=== PATIENT | male | born 1935 | race Caucasian/White ===

== ENCOUNTER → 2020-04-13 | Outpatient (BNVA) | payer MEDICARE, SELFPAY | PROVIDERS: PCP Internal Medicine; Visit Provider Urology | DX: N40.1 Benign prostatic hyperplasia with lower urinary tract symptoms (principal); R53.1 Weakness; G20 Parkinson's disease; Z79.899 Other long term (current) drug therapy | CPT/HCPCS: 51798; 81002; 99212 ==

== ENCOUNTER → 2021-04-19 13:37 | Outpatient (BNVA) | payer OTHER, SELFPAY | PROVIDERS: PCP Internal Medicine; Visit Provider Urology | DX: N40.1 Benign prostatic hyperplasia with lower urinary tract symptoms (principal); R35.1 Nocturia | CPT/HCPCS: 51798; 99212 ==

== ENCOUNTER → 2021-07-08 13:27 | Outpatient (BNVA) | payer MEDICARE, SELFPAY | PROVIDERS: PCP Internal Medicine; Visit Provider Psychiatry & Neurology Neurology | DX: G20 Parkinson's disease (principal); G24.4 Idiopathic orofacial dystonia; Z79.899 Other long term (current) drug therapy | CPT/HCPCS: 99212 ==

== ENCOUNTER → 2021-10-25 14:43 | Outpatient (BNVA) | payer MEDICARE, SELFPAY | PROVIDERS: PCP Internal Medicine; Visit Provider Urology | DX: N40.1 Benign prostatic hyperplasia with lower urinary tract symptoms (principal); R35.1 Nocturia | CPT/HCPCS: 51798; 99212 ==

== ENCOUNTER 2023-05-15 13:52 | Outpatient (AMB) | payer MEDICARE, SELFPAY ==
[2023-05-15 14:00] VITALS: BP 120/82; PULSE 88; RESP 16
--- NOTE | 2023-05-15 14:00 | A.OFFVIS_ITS ---
Intake Vital Signs 05/15/23 14:00 Height 5 ft 9 in BP 120/82 Blood Pressure Location Rt brachial Position Sitting Respiration 16 Pulse 88 Pulse Source Palpation Intake Visit Reasons: follow up - LVM Intake Note: Pt presents to the office for a follow up for Parkinsons. He states he feels like I'm slowing down . Key Ringer Required: No Allergies sulfa Allergy (Unknown, Uncoded 05/15/23 14:13) Unknown HPI HPI Comments History of Present Illness Details 87 y/o male patient comes with his [employer] aid for follow up of Parkinson's disease. He lives in [facility] now.His is in the Assisted living as well Pt states that he feels weaker and has declined. He walks about 150 ft a day with walker He uses an motorized wheel chair most of the time. He is on sinemet 1.5 4 times a day and amantadine 100mg bidSwallowing has improved from puree diet to mechanical soft diet, no choking reported. Pt reports his memory fair, denies hallucination. Pt uses mouth guard at night because of mouth dyskinesia. Denies light headedness. Pt drinks 4 glassless of water daily and juice Manages constipation with Miralax and senna. Pt reports he can only walk short distance with walker. He only can participates the seated exercise program at the [facility]. [facility] Medical History Kidney stones Eye dryness HTN (hypertension) Parkinsons disease Poor urinary stream Benign prostatic hyperplasia with lower urinary tract symptoms Surgical History H/O hernia repair History of appendectomy History of surgery Family History Family/Other Cancer Diabetes mellitus Stroke Father No problems noted. Mother No problems noted. Household Members: Spouse Alcohol intake: current Alcohol intake frequency: holidays/special occasions only Patient Tobacco Use Status: Never used Tobacco Review of Systems ENT Reports Normal hearing present Neuro Reports Normal hearing present Physical Exam Vital Signs: Last Vital Signs Pulse 88 05/15/23 14:00 Resp 16 05/15/23 14:00 BP 120/82 05/15/23 14:00 Const General: cooperative and no acute distress Nutritional Appearance: average body habitus Orientation/consciousness: patient oriented x3 Limitations: wheelchair HEENT Head: Yes normocephalic Ears: hearing grossly normal bilaterally Mouth: other (dyskinesia of mouth) Eyes Pupils: Equal, round and reactive pupils present Neuro General: patient oriented x3, Unable to assess gait and other (Decreased facial expression) Cranial nerves: Yes Equal, round and reactive pupils present, Yes Bilaterally intact EOM present, Yes Normal hearing present, Yes Ability to bilaterally rotate head present and Yes Ability to bilaterally elevate shoulders present Cognition (Neuro): normal cognition Gait exam (Neuro): Unable to assess gait Motor exam (neuro): Tremors during motor activity present (minimal tremor of right hand) Deep tendon reflexes (DTR's): Rt Biceps (C5, C6): 2+, Left biceps reflex intensity grade: 2+, Right brachioradialis reflex intensity grade: 2+ and Left brachioradialis reflex intensity grade: 2+ Psych Speech and movement: Other speech and movement exam findings present (Psych) (hypophonia ) Affect: normal affect Attitude: cooperative Thought process: Normal thought process present Thought content: Normal thought content present Assessment & Plan Assessment & Plan (1) Parkinsons disease: Code(s): G20 - Parkinson's disease (2) 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 Pt would benefit with the motorized wheel chair in risk of injury due to falls and weakness secondary to complications of Parkinson's Disease. Ordered motorized wheelchair. Coding Level of Care Code Est Pt Level 4 (75568) Diagnoses Parkinsons disease G20 Dyskinesia of mouth G24.4
== END 2023-05-15 14:34 | disposition home or self-care (01) ==
PROVIDERS: PCP Internal Medicine; Visit Provider Psychiatry & Neurology Neurology
DX: G20.B1 Parkinson's disease with dyskinesia, without mention of fluctuations (principal)
CPT/HCPCS: 99214

== ENCOUNTER → 2023-05-15 13:52 | Outpatient (BNVA) | payer MEDICARE, SELFPAY | PROVIDERS: PCP Internal Medicine; Visit Provider Psychiatry & Neurology Neurology | DX: G20.A1 Parkinson's disease without dyskinesia, without mention of fluctuations (principal); G24.4 Idiopathic orofacial dystonia | CPT/HCPCS: 99212 ==

== ENCOUNTER 2023-05-29 10:56 | Outpatient (AMB) | payer MEDICARE, SELFPAY ==
--- OUTSIDE RECORDS SUMMARY | 2023-05-29 10:57 | XMS_ITS | Continuity of Care Document ---
Author Name Unknown Organization [facility] ter Address [address] [place] [address]- Care Team Providers [employer] Name Role Phone Melvin Govea MD Primary Care Physician Encounter [facility] Date(s): 04/30/23 - 04/30/[address] [address] Discharge Disposition: A-D/C Home Attending Physician: Tevin Bernstein MD Admitting Physician: Tevin Bernstein MD Referring Physician: Tevin Bernstein MD Allergies, Adverse Reactions, Alerts Substance Reaction Severity Status sulfADIAZINE rash Active Immunizations Given and Recorded Vaccine Date Status Refusal Reason Typhoid Vaccine, Inactivated 06/22/10 Given Typhoid Vaccine, Inactivated 03/06/05 Given tetanus/diphtheria/pertussis, acel(Tdap) 06/22/10 Given Hepatitis A Adult Vaccine 1 09/06/05 Given Hepatitis A Adult Vaccine 2 03/06/05 Given Hepatitis A Vaccine (oldterm) 3 09/06/05 Given Hepatitis B Vaccine (old term) 4 05/04/05 Given Hepatitis B Vaccine (old term) 5 04/07/05 Given Poliovirus Vaccine, Inactivated 04/07/05 Given Meningococcal Conjugate Vaccine 6 04/07/05 Given tetanus-diphtheria toxoids (Td) 12/28/04 Given Yellow Fever Vaccine 12/28/04 Given 1Admin Note: hep a #2 2Admin Note: hep a #1 3Admin Note: hep b #3 4Admin Note: hep b #2 5Admin Note: hep b #1 6Admin Note: menactra Medications amantadine 100 mg oral tablet 1 tablet = 100 mg, By Mouth, 2 times a day, # 20 tablet, 0 Refills, Maintenance, 01/24/19 21:43:06 EDT, Tablet Start Date: 01/24/19 Stop Date: 02/03/19 Status: Ordered ascorbic acid 250 mg oral tablet 1 tablet = 250 mg, By Mouth, Daily, # 30 tablet, 0 Refills, Maintenance, 03/22/23 17:35:00 EDT, Tablet, Partial fill upon patient request if the prescription is for a schedule II opioid drug. Start Date: 03/22/23 Status: Ordered bisacodyl 10 mg rectal suppository 1 supp = 10 mg, Rectally, Daily, PRN for constipation, # 10 supp, 0 Refills, Maintenance, 03/22/23 17:35:00 EDT, Suppository, Partial fill upon patient request if the prescription is for a schedule II opioid drug. Start Date: 03/22/23 Status: Ordered carbidopa-levodopa 25 mg-100 mg oral tablet 1 tablet, 5 times a day, 0 Refills, Maintenance, 01/24/19 21:42:04 EDT, Tablet Start Date: 01/24/19 Status: Ordered Cholecalciferol 1000, By Mouth, Daily, 0 Refills, Maintenance, 03/22/23 17:34:00 EDT, Partial fill upon patient request if the prescription is for a schedule II opioid drug. Start Date: 03/22/23 Status: Ordered finasteride 5 mg oral tablet 1 tablet = 5 mg, Daily, 0 Refills, Maintenance, 01/24/19 21:43:18 EDT, Tablet Start Date: 01/24/19 Status: Ordered lisinopril 10 mg oral tablet 10 mg, 1, tablet, By Mouth, Daily, # 30 tablet, Refills 1, Tot. Refills 1, Maintenance, 01/27/19 10:17:06 EDT, Print Requisition Start Date: 01/27/19 Status: Ordered MiraLax oral powder for reconstitution = 17 Gm, By Mouth, Daily, PRN Constipation, dissolve in water before taking, # 255 Gm, 0 Refills, Maintenance, 03/22/23 17:35:00 EDT, REC Powder, Partial fill upon patient request if the prescriptionis for a schedule II opioid drug. Start Date: 03/22/23 Status: Ordered Restasis 0.05% ophthalmic emulsion 0 Refills, Maintenance, 03/22/23 17:32:00 EDT, Partial fill upon patient request if the prescription is for a schedule II opioid drug. Start Date: 03/22/23 Status: Ordered Systane Ultra preserved ophthalmic solution 1 drops, Eyes, Both, 2 times a day, PRN for dry eyes, # 30 mL, 0 Refills, Maintenance, 03/22/23 17:37:00 EDT, Solution, Partial fill upon patient request if the prescription is for a schedule II opioid drug. Start Date: 03/22/23 Status: Ordered Tylenol 325 mg oral tablet 650 mg, By Mouth, Every 6 hours, PRN, Refills 0, Maintenance, Pain , Mild, 01/27/19 9:53:30 EDT Start Date: 01/27/19 Status: Ordered Vital Signs Most recent to oldest [Reference Range]: 1 2 3 Weight 61.8 kg (04/30/23 7:44 AM) Oxygen Saturation [94-100 %] 98 % (04/30/23 8:45 AM) 100 % (04/30/23 8:15 AM) 100 % (04/30/23 8:00 AM) Pulse Rate [55-90 bpm] 57 bpm (04/30/23 8:15 AM) 58 bpm (04/30/23 8:00 AM) 61 bpm (04/30/23 7:44 AM) Blood Pressure [90-138/55-84 mm Hg] 157/66mm Hg *H* (04/30/23 9:00 AM) 157/66mm Hg *H* (04/30/23 8:45 AM) 138/55mm Hg (04/30/23 8:15 AM) Respiratory Rate [16-30 br/min] 19 br/min (04/30/23 9:00 AM) 15 br/min *L* (04/30/23 8:45 AM) 21 br/min (04/30/23 8:15 AM) Temperature [96.8-100.4 DegF] 96.9 DegF (04/30/23 8:45 AM) 97.3 DegF (04/30/23 7:44 AM) Liters per Minute 0 L/min (04/30/23 8:45 AM) 2 L/min (04/30/23 8:15 AM) 2 L/min (04/30/23 8:00 AM) Mode of Delivery (Oxygen) Room air (04/30/23 9:00 AM) Room air (04/30/23 8:45 AM) Nasal cannula (04/30/23 8:15 AM) Blood pressure sites Arm, left (04/30/23 8:15 AM) Arm, left (04/30/23 8:00 AM) Arm, left (04/30/23 7:44 AM) Temperature Route Temporal (04/30/23 8:45 AM) Temporal (04/30/23 7:44 AM) Dry Weight 61.8 kg (04/30/23 7:44 AM) Dry Weight Obtained Via Standing scale (04/30/23 7:44 AM) History and physical note * Event Display: History and Physical Hospital Authored Date: [id number] Note * Sharri Serrano RN: PERFORM Event Display: Discharge/Transfer Note Hospital Authored Date: [id number] Nursing Discharge Note Entered On: 04/30/2023 9:35 EST Performed On: 04/30/2023 9:35 EST by Sharri Serrano RN Nursing Discharge Note 2 Discharge Time : 04/30/2023 9:44 EST Sharri Serrano RN - 04/30/2023 9:38 EST Discharge Level of Care at Discharge : Home/Custodial/Foster Care Patient Left Unit Via : Wheelchair Patient Accompanied Off Unit with : Responsible adult DC Instructions Provided & Signed by Pt : Yes Patient Understands D/C Instructions : Yes Verbalized Understanding of D/C Plan By : Family Patient Instructions Discharge Signed : Yes Did Pt have Specialty Bed or Wound Vac : No Sharri Serrano RN - 04/30/2023 9:35 EST * Sharri Serrano RN: PERFORM Event Display: Patient Education/Instruction Authored Date: [id number] Inpatient Adult Discharge Instructions [address] [address] Name: AMOS MOROCHO : 1935 Visit: 04/30/2023 06:02:00 Current Date: 04/30/2023 09:36 Account: [id number] Inpatient Adult Discharge Instructions We would like to thank you for allowing us to assist you with your healthcare needs. The following includes patient education materials and information regarding your injury/illness. Our entire staffstrives to provide an excellent experience for our patients and their families. PLEASE ENSURE YOU FOLLOW-UP PER THE INSTRUCTIONS BELOW! ?? YOUR OPINION IS IMPORTANT TO US! Please complete the survey you may receive by mail or email. Your feedback will be used to make improvements to the healthcare experiences of our patients and their families. Surveys are administered by [employer] ?? If further treatment with your primary care physician or another doctor is recommended, it is important for you to keep the appointment. Call your primary care physician or return to the Emergency Department immediately if your condition worsens, fails to improve, or new symptoms develop. If you need to find a doctor, you can call [facility] [employer] for a referral at [phone] or toll free at [phone] ([phone]) or log in to [email or web address].. ?? [facility], in keeping with [facility] guidance, no longer requires face masks for staff, patientsor visitors in most situations. Similiar to time spent indoors at other locations, there is the chance that you were exposed to repiratory viruses during your time with us (such as flu or COVID-19). If you develop symptoms concerning for a viral respiratory infection, please seek testing (and treatment if indicated) from your medical provider or home test kit. ?? You can view and manage your care through the patient portal or by using a health care [facility] of your choosing. [employer] is a website that allows you to securely view your medical information including your hospital discharge summary, office visit summaries, medications and follow-up visits. You can also request appointments, renew medications, and request access to your medical information using a health care [facility] of your choosing, or just ask a question. You can enroll at [email or web address] or register during your next office visit. You have been discharged from [facility], Patient Care Unit: [facility]. If you have any questions regarding these instructions after you leave, please call us and we will be happy to assist you. [facility] Your Care Team Attending Physician Tevin Bernstein MD Discharging Providers Tevin Bernstein MD Reason for Admission [facility]AC[facility] DS CS Primary Care Provider Melvin Govea MD Advance Directive Health Care Proxy on File No Discharge Vitals Temperature: 96.9 DegF Weight: 61.8 kg Pulse Rate: 57 bpm ?? Respiratory Rate: 19 br/min ?? Systolic Blood Pressure:??157 mm Hg??High ?? Diastolic Blood Pressure: 66 mm Hg ?? Oxygen Saturation: 98 % ?? What to do next Instructions from your Care Team follow dr bailey postoperative instruction sheet You Need to Schedule the Following Appointments Follow Up with??Tevin Bernstein Where: [address] [facility] [place] [address]- Business (1) Follow Up with??Melvin Govea MD When:??In 0 days Where: [address] [facility] [place] [address]- Business (1) Discharge Medications AMOS MOROCHO :1935 Visit Date:04/30/2023 Medications: Please continue your medications until treatment is completed or stopped by your provider. Medications not listed below should be discontinued. Discuss any questions related to medications with your provider. What How Much When Instructions Next Dose Unchanged Acetaminophen (Tylenol 325 mg oral tablet) 650 Milligram Oral Every 6 hours as needed for Pain , Mild anytime home Unchanged Amantadine (amantadine 100 mg oral tablet) 1 tab(s) Oral Twice a day Duration: 10 Days Unchanged Ascorbic Acid (ascorbic acid 250 mg oral tablet) 1 tab(s) Oral Daily Unchanged Bisacodyl (bisacodyl 10 mg rectal suppository) 1 suppository(ies) Per rectum Daily as needed for for constipation Unchanged Carbidopa-Levodopa (carbidopa-levodopa 25 mg-100 mg oral tablet) 1 tab(s) 5 times a day Unchanged Cholecalciferol 1000 Oral Daily Unchanged Cyclosporine Ophthalmic (Restasis 0.05% ophthalmic emulsion) Unchanged Finasteride (finasteride 5 mg oral tablet) 1 tab(s) Daily Unchanged Lisinopril (lisinopril 10 mg oral tablet) 1 tab(s) Oral Daily Unchanged Ocular Lubricant (Systane Ultra preserved ophthalmic solution) 1 Drops Both eyes Twice a day as needed for for dry eyes Unchanged Polyethylene Glycol 3350 (MiraLax oral powder for reconstitution) 17 gram Oral Daily as needed for Constipation dissolve in water before taking ?? Allergies (NKA means No Known Allergies) sulfADIAZINE??(rash) Problems No qualifying data available Education Materials Below is the list of Educational Leaflet Providered with your Discharge Instructions. Surgery Medical Daystay Surgical Overnight Discharge Instructions?? Valuables and Belongings I fully understand and agree that [facility] accepts no responsibility for all my personal property including clothing, toilet articles, radios, jewelry, dentures, hearing aids, rings, money, or any other property that is in my possession or is brought to me after admission. I understand certain valuables may be placed in a hospital safe for a short period of time. I understand that the hospital is not liable for loss or damage due to accident, fire, or other natural occurrence while said property is in the safe. I accept full responsibility for any personal property that I keep with me, and will not hold the hospital responsible in case of loss or disappearance. I acknowledge that i have been encouraged to send valuables and belongings home. ?? Date for Pt to Sign Valuables/Belongings: 04/30/23 07:47:00 ?? Valuables & Belongings ?? Clothes Electronic devices Jewelry Monetary Items Personal devices Miscellaneous Medications (Valuables) Valuables at Bedside Jacket, Shirt, Shoes ? Valuables Sent Home ? Valuables Sent to Security ? Other Discharge Information ? Case Management Discharge Plan?? Discharge Plan?? Discharge Level of Care at Discharge: Home/Custodial/Foster Care ?? Pulmonary Rehab Status?? Pulmonary Rehab Discharge Status?? Respiratory Rate: 19 br/min ? Common Emergency Awareness Tips IS IT A STROKE? Act FAST and Check for these signs: FACE Does the face look uneven? ARM Does one arm drift down? SPEECH Does their speech sound strange? TIME Call at any sign of stroke ?? Heart Attack Signs Chest discomfort: Most heart attacks involve discomfort in the center of the chest and lasts more than a few minutes, or goes away and comes back. It can feel like uncomfortable pressure, squeezing, fullness or pain. Discomfort in upper body: Symptoms can include pain or discomfort in one or both arms, back, neck, jaw or stomach. Shortness of breath: With or without discomfort. Other signs: Breaking out in a cold sweat, nausea, or lightheaded. Remember, MINUTES DO MATTER. If you experience any of these heart attack warning signs, call to get immediate medical attention! ?? Smoking can increase your chances of developing chronic health problems and can cause harmful effects to other family members in your house. If you smoke, you are strongly encouraged to quit. Please call [facility] [employer] at [phone] or [phone] [employer] ([phone]) or log in to [email or web address] for referrals to smoking cessation programs. ?? 651 Suicide & Crisis Lifeline is available 15/01 if you or someone you know needs to find a reason to keep living. By calling 179 you'll be connected to a skilled, trained counselor at a crisis center in your area. INPATIENT DISCHARGE INSTRUCTIONS SIGNATURE PAGE AMOS MOROCHO Location:[facility] Registration Date and Time:04/30/2023 06:02 [facility] Primary Care Physician: Jeferson HENDRICKSON , Melvin Phillips, Attending Physician: Day HENDRICKSON, Tevin Yi, I RASHAWN AMOS, have received the above patient education materials/instructions and have verbalized understanding. If ambulance or transport services are being used I further acknowledge being given a choice of service. ?? If you need to contact me, please call me at this number: . Patient/Student Records Specialist Name: Patient/Student Records Specialist Signature: Relationship to Patient: Witness Name/Signature: Date: * Sharri Serrano RN: PERFORM, SIGN, VERIFY Event Display: Patient Education Handout Authored Date: [id number] * Sharri Serrano RN: PERFORM Event Display: Patient Education Leaflets Authored Date: [id number] Surgery Medical Daystay Surgical Overnight Discharge Instructions ?? 295 Medical Daystay/Surgical Overnight Discharge Instructions ? Since your coordination and judgment may be altered by medication and/or anesthesia, a responsible adult must drive you home from the hospital. ? If you have received medication for pain or sedation while under our care, you should not drive, operate machinery, drink alcohol, or sign any legal documents for 24 hours.?? You should have someone with you at home tonight. ? Remain at home the day of discharge.?? You may be up and about unless otherwise instructed by your physician. ? You may resume your daily prescription medication schedule.?? Any depressant medication should be avoided for 24 hours unless otherwise instructed by your surgeon or anesthesiologist. ? Call your physician for a follow-up appointment.? If you experience unusual or severe pain not relied by your pain medication, excessive bleedingor drainage, persistent nausea and vomiting, excessive swelling or redness, foul odor from incisionsite or fever over 100.6F, you need to call your physician. ? A follow-up phone call by a nurse will be made the day after your procedure.?? If you have stayed with us over night, you will not be receiving a follow-up phone call. ? Nausea and vomiting are a common side effect of prescription pain medication.?? We recommend that pills are not taken on an empty stomach.?? While taking any prescription pain medication you should not drive or drink alcohol. ? Patient Care team information Care Team Personnel Name: Melvin Govea MD Position: Reference Physician Member Role: PCP Address: Address: [address] [place] [address] [place] [address]- Name: Tevin Gomez RN Position: S RN Member Role: Primary Care Nurse Name: Virginia Orellana RN Position: S RN Member Role: Primary Care Nurse Care Team Related Persons Name: EDDIE MOROCHO Address: [address] [place] [address]
--- OUTSIDE RECORDS SUMMARY | 2023-05-29 10:57 | XMS_ITS | Continuity of Care Document ---
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 Name Role Phone Melvin Govea MD Primary Care Physician Encounter [facility] Date(s): 03/26/23 - 03/26/[address] [id number] Discharge Disposition: A-D/C Home Attending Physician: [...] to oldest [Reference Range]: 1 2 3 Height 175 cm (03/26/23 9:52 AM) 175 cm (03/22/23 5:44 PM) Weight 60.6 kg (03/26/23 9:52 AM) 61.5 kg (03/22/23 5:44 PM) Oxygen Saturation [94-100 %] 99 % (03/26/23 10:48 AM) 100 % (03/26/23 9:52 AM) Pulse Rate [55-90 bpm] 61 bpm (03/26/23 9:52 AM) Body Mass Index [18.5-24.99 kg/m2] 19.79 kg/m2 (03/26/23 9:52 AM) 20.08 kg/m2 (03/22/23 5:44 PM) Blood Pressure [90-138/55-84 mm Hg] 138/66mm Hg (03/26/23 10:48 AM) 161/68mm Hg *H* (03/26/23 9:52 AM) Respiratory Rate [16-30 br/min] 20 br/min (03/26/23 10:48 AM) 17 br/min (03/26/23 9:52 AM) Temperature [96.8-100.4 DegF] 97.4 DegF (03/26/23 10:48 AM) 97.2 DegF (03/26/23 9:52 AM) Mode of Delivery (Oxygen) Room air (03/26/23 11:19 AM) Room air (03/26/23 10:48 AM) Room air (03/26/23 9:52 AM) Blood pressure sites Arm, right (03/26/23 10:48 AM) Arm, left (03/26/23 9:52 AM) Temperature Route Temporal (03/26/23 10:48 AM) Temporal (03/26/23 9:52 AM) Dry Weight 60.6 kg (03/26/23 9:52 AM) 61.5 kg (03/22/23 5:44 PM) Weight Obtained Via Standing scale (03/26/23 9:52 AM) Patient/family stated (03/22/23 5:44 PM) Dry Weight Obtained Via Standing scale (03/26/23 9:52 AM) Patient/family stated (03/22/23 5:44 PM) History and physical note * Event Display: History and Physical Hospital Authored Date: [id number] Note * Portia Olivier RN: PERFORM Event Display: Patient Education/Instruction Authored Date: [id number] Surgery Adult Discharge Instructions [place] [id number] Name: CARTER LAN : 1935?? Visit: 03/26/2023 08:32?? Current Date: 03/26/2023 10:56 ?? Account: [id number]?? Surgery Discharge Instructions We would like to thank [...] and their families. Surveys are administered by [employer] ?? If further treatment with your primary care physician or another doctor is recommended, it is important for you to keep the appointment. Call your primary care physician or return to the Emergency Department immediately if your condition worsens, fails to improve, or new symptoms develop. If you need to find a doctor, you can call [facility] for a referral at [phone] or toll free at [phone]) or log in to [email or web address].. ?? [facility], in keeping with [facility] guidance, no longer requires face masks for [...] a health care [place] of your choosing. [email or web address] is a website that allows you to securely view your medical information including your hospital discharge summary, office visit summaries, medications and follow-up visits. You can also request appointments, renew medications, and request access to your medical information using a health care [place] of your choosing, or just ask a question. You are entitled to know the individuals who participated in your treatment. This information is available within your medical record and will be provided upon your request. You can enroll at [email or web address] or register d uring your next office visit. You have been discharged from [facility], Patient Care Unit: [facility]??. If you have any questions regarding these instructions after you leave, please call us and we will be happy to assist you. [facility] Your Care Team Attending Physician Tevin Bernstein MD?? Consulting Providers Juan David Faria DO?? Discharging Providers Tevin Bernstein MD Reason for Admission [facility] PHACO DS CS Primary Care Provider Melvin Govea MD? Advance Directive Health Care Proxy on File No What to do next Instructions From Your Doctor ?? Orders?? Daystay Protocol, ??03/26/23 10:24:00 EDT?? Instructions from your Care Team ?? If eye patched, keep eye patched until follow up appointment except when lifting to apply drops ?? All drops to be used in operative eye beginning on arrival home and to be continued until postop visit ?? Follow up in office tomorrow. ?? No bending or heavy lifting/pushing. ?? Scheduled Follow-Up Appointments Sunday 9:00 AM EST ?? Where: [facility] Status: Pending You Need to Schedule the Following Appointments Follow Up with??Tevin Bernstein MD When:??03/27/2023 08:45 AM EDT Why: Call for questions/concerns and follow up appointment. FOLLOW UP IS AT [facility]. Where: [address] [place] [address] [facility] [place] [address]- Discharge Medications CARTER LAN :1935 Visit Date:03/26/2023 Medications: Please continue your medications until treatment is completed or stopped by your provider. You may resume your daily prescription medications. Discuss any questions related to medications with your provider. What How Much When Instructions Next Dose Changed Carbidopa-Levodopa (carbidopa- levodopa 25 mg-100 mg oral tablet) 1 tab(s) 5 times a day Unchanged Acetaminophen (Tylenol 325 mg oral tablet) 650 Milligram Oral Every 6 hours as needed for Pain , Mild Unchanged Amantadine (amantadine 100 mg oral tablet) 1 tab(s) Oral Twice a day Duration: 10 Days Unchanged Ascorbic Acid (ascorbic acid 250 mg oral tablet) 1 tab(s) Oral Daily Unchanged Bisacodyl (bisacodyl 10 mg rectal suppository) 1 suppository(ies) Per rectum Daily as needed for for constipation Unchanged Cholecalciferol 1000 Oral Daily Unchanged Cyclosporine [...] Allergies (NKA means No Known Allergies) sulfADIAZINE??(rash) Valuables and Belongings I fully understand and agree that [facility] accepts no responsibility for all my [...] to send valuables and belongings home. ?? Review of Valuable and Belonging List: With patient Date for Pt to Sign Valuables/Belongings: 03/26/23 09:52:00 ?? Valuables & Belongings ?? Clothes Electronic devices Jewelry Monetary Items Personal devices Miscellaneous Medications (Valuables) Valuables at Bedside Pants, Shirt, Shoes, Undergarments ? Wheelchair ? Valuables Sent Home ? Valuables Sent to Security ? Common Emergency Awareness Tips IS IT [...] are strongly encouraged to quit. Please call [email or web address] at [phone] or [phone] ([phone]) or log in to [email or web address] for referrals to smoking cessation programs. ?? The National Suicide Prevention Hotline is available 15/01 if you or someone you know needs to find a reason to keep living. By calling 5-378-447-lamz (4198) you'll be connected to a skilled, trained counselor at a crisis center in your area. SURGERY DISCHARGE INSTRUCTIONS SIGNATURE PAGE CARTER LAN Location:[facility] Registration Date and Time:03/26/2023 08:32 EDT Primary Care Physician: Jeferson HENDRICKSON , Melvin Phillips, Attending Physician: Day HENDRICKSON, Tevin Yi, I CARTER LAN, have received the above patient education materials/instructions and have verbalized understanding. If ambulance or transport services are being used I further acknowledge being given a choice of service. ?? If you need to contact me, please call me at this number: . Patient/Paralegal Legal Secretary Name:____Carter Lan Patient/Paralegal Legal Secretary Signature: Relationship to Patient: Witness Name/Signature: Date: 03/26/23 * Portia Olivier RN: PERFORM Event Display: Patient Education Leaflets Authored Date: [id number] Surgery Medical Daystay Surgical Overnight Discharge Instructions [...] Reference Physician Member Role: PCP Address: Address: [address] [facility] [place] [address]- Name: Tevin Gomez RN Position: S RN Member Role: Primary Care Nurse Name: Virginia Orellana RN Position: S RN Member Role: Primary Care Nurse Care Team Related Persons Name: EDDIE LAN Address: [address] [place] [id number]
--- NOTE | 2023-05-29 11:22 | A.OFFVIS_ITS ---
Intake Intake Visit Reasons: 6 month/ PVR Intake Note: Patient is Present for Follow Up Urology Medication: Finasteride Antibiotic Allergies: Sulfa Blood Thinners: None PVR: 0 Allergies sulfa Allergy (Unknown, Uncoded 05/29/23 11:28) Unknown HPI HPI Comments History of Present Illness Details Carter is a very pleasant male. He is a patient of Dr. Govea. He is seen for the following urologic conditions - lower urinary tract symptoms Stable PVR No recurrence of hematuria Continue with finasteride Minimal hesitancy Does use a urinal at night time Twelve month follow-up Lower Urinary Tract Symptoms: Continues to empty well Stable with finasteride Current visit is for further evaluation of, lower urinary tract symptoms, predominate obstructive symptoms. Current treatment includes Has Parkinson's Happy - nocturia x2 - finasteride Prostate Symptom Score 8/18 , Moderate (9-19), Bother 3. Symptoms include 8/18 , incomplete emptying, and are improving\ 2/19 , nocturia (>2), and are improving. Prior Prostate Score unknown. Treatment plan continue with current medications. Assisted living [facility] Medical History Kidney stones Eye dryness HTN (hypertension) Parkinsons disease Poor urinary stream Benign prostatic hyperplasia with lower urinary tract symptoms Surgical History H/O hernia repair History of appendectomy History of surgery Family History Family/Other Cancer Diabetes mellitus Stroke Father No problems noted. Mother No problems noted. Social History Household Members: Spouse Alcohol intake: current Alcohol intake frequency: holidays/special occasions only Patient Tobacco Use Status: Never used Tobacco Review of Systems Const Denies chills and Denies fever(s) Card Reports no additional complaints and Denies syncope Resp Denies cough GI Denies abdominal pain and Denies heartburn Reports as per HPI and Denies change in libido Neuro Denies syncope Psych Denies change in libido Endo Denies change in libido Physical Exam Const General: cooperative, healthy appearing, comfortable and no acute distress Orientation/consciousness: patient oriented x3 HEENT Face and sinus: Yes normal facial exam Mouth: moist mucous membranes Neck Neck: Yes normal visual inspection, Yes full ROM and Yes trachea midline Chest Chest palpation & inspection: normal inspection of the chest Resp Effort & Inspection: normal respiratory effort, able to speak in complete sentences and no respiratory distress GI Inspection: Yes normal to inspection Back/Spine/Pelvis Cervical Spine: normal cervical lordosis Thoracic/Lumbar Spine: thoracic and lumbar spine normal to inspection Skin General skin exam: no rashes or lesions noted Neuro General: patient oriented x3, gait normal, tone normal and moves all extremities Extrem General: Yes normal to inspection and Yes capillary refill normal Office Procedures Post Void Residual Post Residual Void Post Void Residual (PVR): 0 [id number]-[id number] Void Residual by ultrasound Assessment & Plan Assessment & Plan (1) Nocturia more than twice per night: Code(s): R35.1 - Nocturia (2) BPH loc w urin obs/LUTS: Code(s): N40.1 - Benign prostatic hyperplasia with lower urinary tract symptoms Plan Continue finasteride Twelve month follow-up PVR Orders: Orders AMB Post Void Residual by ultrasound Today N40.1 - Benign prostatic hyperplasia with lower urinary tract symptoms Patient Instructions: Imaging studies, laboratory and physical exam results were discussed and reviewed in detail. No major barriers to patient understanding were identified. An opportunity to ask questions regarding the treatment plan was provided. All questions were answered. The patient expressed understanding and agreement with the above treatment plan. The patient is aware they should contact our office by phone for worsening of their current condition or the appearance of new urologic symptoms. Compliance is encouraged with any medications and followup testing that is ordered. It is a privilege to participate in the urologic care of your patient. If you have any questions or concerns regarding treatment for the above conditions, or other urologic issues, please do not hesitate to contact me. The office telephone contact is [phone]. This note is constructed using voice recognition software. While every effort has been made to ensure accuracy safety security officer errors may have been included. Yours sincerely, Dr Guille Yost MD, [facility] - Urology Providers of Expert, Compassionate Care for the Genitourinary System Coding Level of Care Code Est Pt Level 4 (52384) Diagnoses Nocturia more than twice per night R35.1 BPH loc w urin obs/LUTS N40.1 CPT Codes Post Residual Void - PVR CPT Code: 04288-Nrve Void Residual by ultrasound ([id number])
== END 2023-05-29 11:40 | disposition home or self-care (01) ==
LOC: HO.HUSH 10:56
PROVIDERS: PCP Internal Medicine; Visit Provider Urology
DX: N40.1 Benign prostatic hyperplasia with lower urinary tract symptoms (principal); R35.1 Nocturia
CPT/HCPCS: 99213

== ENCOUNTER → 2023-05-29 10:56 | Outpatient (BNVA) | payer MEDICARE, SELFPAY | PROVIDERS: PCP Internal Medicine; Visit Provider Urology | DX: N40.1 Benign prostatic hyperplasia with lower urinary tract symptoms (principal); R35.1 Nocturia | CPT/HCPCS: 51798; 99212 ==

== ENCOUNTER 2023-11-13 13:01 | Outpatient (AMB) | payer OTHER, SELFPAY ==
--- NOTE | 2023-11-13 13:02 | MHC.OFFVIS ---
Intake Visit Reasons: 6 mo f/u Parkinson/Dyskenia - Confirmed Intake Note: Pt presents for 6 month follow up for Parkinson's via telehealth visit. Pt reports he needs a refill on his Amantadine and Carbidopa-Levadopa sent to [facility] Hold Worker Required: No Allergies sulfa Allergy (Unknown, Uncoded 11/13/23 13:04) Unknown Medication List - Last Reconciled 11/13/23 by Kendra Spaulding MD amantadine HCl 100 mg PO BID carbidopa-levodopa 25-100 mg 2 tabs PO TID chair, wheel (Wheel chair) motorized w/c- pt to use in his home and outside finasteride 5 mg PO DAILY 90 days lisinopril 5 mg PO BID HPI Comments Details: 88 y/o male patient calls for follow up of Parkinson's disease. His geriatric care nurse helps with his appointment,He lives in [facility] living now.His is in the Assisted living as well Pt states that he feels weaker and has declined. He walks about 150 ft a day with walker He uses an motorized wheel chair most of the time. He is on sinemet 2 -3 times a day and amantadine 100mg bidSwallowing has improved from puree diet to mechanical soft diet, no choking reported. Pt reports his memory fair, denies hallucination. Pt uses mouth guard at night because of mouth dyskinesia. Denies light headedness. Pt drinks 4 glassless of water daily and juice Manages constipation with Miralax and senna. Pt reports he can only walk short distance with walker. He only can participates the seated exercise program at the [facility]. [facility] Medical History Kidney stones Eye dryness HTN (hypertension) Parkinsons disease Poor urinary stream Benign prostatic hyperplasia with lower urinary tract symptoms Surgical History History of cataract surgery H/O hernia repair History of appendectomy History of surgery Family History Family/Other Cancer Diabetes mellitus Stroke Father No problems noted. Mother No problems noted. Social History Household Members: Spouse Alcohol intake: current Alcohol intake frequency: holidays/special occasions only Patient Tobacco Use Status: Never used Tobacco Physical Exam Const Orientation/consciousness: patient oriented x3 Neuro Other: speech- hypophonia General: patient oriented x3 Telehealth Telehealth Telehealth Platform: Telephone Location of provider rendering services: practice address Location of patient: address on file Patient Identification confirmed using: Name, : Yes Telehealth method: voice only Patient verbally consented to treatment: Yes Patient verbally consented to billing insurance company: Yes Patient informed of any privacy concerns related to visit: Yes Minutes spent on Phone/Video with Pt.: 15 Assessment & Plan Assessment & Plan (1) Parkinsons disease: Code(s): G20 - Parkinson's disease Category: Medical (2) 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
== END 2023-11-13 14:30 ==
LOC: HO.HSMS 13:01
PROVIDERS: PCP Internal Medicine; Visit Provider Psychiatry & Neurology Neurology
DX: G20.B1 Parkinson's disease with dyskinesia, without mention of fluctuations (principal); G24.4 Idiopathic orofacial dystonia
CPT/HCPCS: 99442

== ENCOUNTER 2024-01-16 17:11 | Outpatient (REF) | payer OTHER, SELFPAY ==
[2024-01-16 17:19] LABS: Appearance Urine Cloudy; Color Urine Yellow; Glucose Urine UA Negative (Negative); Leukocyte Esterase Urine Large (3+) (Negative); Nitrite Urine Negative (Negative); Specific Gravity - Urine 1.015 (1.005-1.025); UMIC TRIGGER UA YES; Urine Blood Negative (Negative); Urine Ketones Trace mg/dL (Negative); Urine Protein 30 (1+) mg/dL (Neg-Trace)
[2024-01-16 17:22] LABS: Bacteria Urine None Seen (None Seen); RBC Urine 0-2 /HPF (0-2); Squamous Epithelial Cell Urine 0-2 /HPF (0-2); WBC Urine >50 /HPF (0-5)
== END 2024-01-16 17:12 | disposition home or self-care (01) ==
LOC: HO.LNP 17:11
PROVIDERS: Visit Provider Urology
DX: R39.9 Unspecified symptoms and signs involving the genitourinary system (principal)
CPT/HCPCS: 81001; 87086; 87088; 87186

== ENCOUNTER 2024-05-15 14:35 | Outpatient (AMB) | payer MEDICARE, SELFPAY ==
--- NOTE | 2024-05-15 14:41 | MHC.OFFVIS ---
Intake Visit Reasons: 6 mnts f/u-Parkinson Intake Note: Patient presents for parkinson's Allergies sulfa Allergy (Unknown, Uncoded 05/15/24 14:43) Unknown Medication List - Last Reconciled 05/15/24 by Kendra Spaulding MD amantadine HCl 100 mg PO BID carbidopa-levodopa 25-100 mg 2 tabs PO TID chair, wheel (Wheel chair) motorized w/c- pt to use in his home and outside finasteride 5 mg PO DAILY 90 days lisinopril 5 mg PO BID nitrofurantoin monohyd/m-cryst 100 mg (Macrobid) 100 mg PO BID 10 days rotigotine (Neupro) 1 mg transdermal DAILY HPI Comments Details: 88 y/o male patient comes for follow up of Parkinson's disease. His geriatric care nurse helps with his appointment,He lives in [facility] living now.His is in the Assisted living as well He feels he is worse. He is slower and tremors are worse.He has trouble swallowing- eats softer food. He has lost weight. His who used to help him has worsened ( she has dementia )and she used to help. He walks about 150 ft a day with walker He uses an motorized wheel chair most of the time. He is on sinemet 2 -3 times a day and amantadine 100mg bid Pt reports his memory fair, denies hallucination. Pt uses mouth guard at night because of mouth dyskinesia. Denies light headedness. Pt drinks 4 glassless of water daily and juice Manages constipation with Miralax and senna. Pt reports he can only walk short distance with walker. He only can participates the seated exercise program at the [facility]. [facility] Medical History Kidney stones Eye dryness HTN (hypertension) Parkinsons disease Poor urinary stream Benign prostatic hyperplasia with lower urinary tract symptoms Surgical History History of cataract surgery H/O hernia repair History of appendectomy History of surgery Family History Family/Other Cancer Diabetes mellitus Stroke Father No problems noted. Mother No problems noted. Social History Household Members: Spouse Alcohol intake: current Alcohol intake frequency: holidays/special occasions only Patient Tobacco Use Status: Never used Tobacco Review of Systems ENT Reports Normal hearing present Neuro Reports Normal hearing present Physical Exam Const General: cooperative and no acute distress Nutritional Appearance: average body habitus Orientation/consciousness: patient oriented x3 Limitations: wheelchair HEENT Head: Yes normocephalic Ears: hearing grossly normal bilaterally Mouth: other (dyskinesia of mouth) Eyes Pupils: Equal, round and reactive pupils present Neuro General: patient oriented x3, Unable to assess gait and other (Decreased facial expression) Cranial nerves: Yes Equal, round and reactive pupils present, Yes Bilaterally intact EOM present, Yes Normal hearing present, Yes Ability to bilaterally rotate head present and Yes Ability to bilaterally elevate shoulders present Cognition (Neuro): normal cognition Gait exam (Neuro): Unable to assess gait Motor exam (neuro): Tremors during motor activity present (minimal tremor of right hand) Psych Speech and movement: Other speech and movement exam findings present (Psych) (hypophonia ) Affect: normal affect Attitude: cooperative Thought process: Normal thought process present Thought content: Normal thought content present Assessment & Plan Assessment & Plan (1) Parkinsons disease: Code(s): G20 - Parkinson's disease Category: Medical Qualifiers: Dyskinesia presence: with dyskinesia Fluctuating manifestations: with fluctuating manifestations Qualified Code(s): G20.B2 - Parkinson's disease with dyskinesia, with fluctuations (2) 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 Category: Medical Plan Continue Sinemet 25/100 2tabs tid amantadine 100mg bid will trial him on neupro patch 1mg qd Benecalorie to increase daily caloric intake Medications: New rotigotine (Neupro) 1 mg transdermal DAILY 30 ea 0RF rotigotine (Neupro) 1 mg transdermal DAILY 30 ea 0RF Refilled amantadine HCl 100 mg PO BID 180 tabs 3RF carbidopa-levodopa 25-100 mg 2 tabs PO TID 180 tabs 6RF Discontinued rasagiline Discontinued Reason: Patient no longer taking 1 mg PO DAILY 30 tabs 4RF Coding Level of Care Code Est Pt Level 4 (00472) Complex EM visit Add On G2211 Diagnoses Parkinson's disease with dyskinesia and fluctuating manifestations G20.B2 Dyskinesia presence: with dyskinesia Fluctuating manifestations: with fluctuating manifestations Dyskinesia of mouth G24.4
== END 2024-05-15 15:19 | disposition home or self-care (01) ==
PROVIDERS: PCP Internal Medicine; Visit Provider Psychiatry & Neurology Neurology
DX: G20.B2 Parkinson's disease with dyskinesia, with fluctuations (principal); G24.4 Idiopathic orofacial dystonia
CPT/HCPCS: 99214; G2211

== ENCOUNTER → 2024-05-15 14:35 | Outpatient (BNVA) | payer MEDICARE, SELFPAY | PROVIDERS: PCP Internal Medicine; Visit Provider Psychiatry & Neurology Neurology | DX: G20.B2 Parkinson's disease with dyskinesia, with fluctuations (principal); G24.4 Idiopathic orofacial dystonia | CPT/HCPCS: 99212 ==

== ENCOUNTER 2024-05-29 11:25 | Outpatient (AMB) | payer MEDICARE, SELFPAY ==
--- NOTE | 2024-05-29 11:38 | MHC.OFFVIS ---
Intake Visit Reasons: 1y/PVR Intake Note: Patient is Present for 1Y Follow Up PVR Urology Medication: Finasteride Antibiotic Allergies: Sulfa Blood Thinners: None PVR: 0ML'S TODAYS PVR: Spot Remover Required: No Allergies sulfa Allergy (Unknown, Uncoded 05/29/24 11:40) Unknown HPI Comments Details: Carter is a very pleasant male. He is a patient of Dr. Govea. He is seen for the following urologic conditions - lower urinary tract symptoms Stable PVR Continue with finasteride Minimal hesitancy Continue to use urinal at night Otherwise doing well Discussed timing of liquids Double voiding Other strategies to empty bladder in setting of Parkinson's Lower Urinary Tract Symptoms: Continues to empty well Stable with finasteride Current visit is for further evaluation of, lower urinary tract symptoms, predominate obstructive symptoms. Current treatment includes Has Parkinson's Happy - nocturia x2 - finasteride Prostate Symptom Score 8/18 , Moderate (9-19), Bother 3. Symptoms include 8/18 , incomplete emptying, and are improving\ 2/19 , nocturia (>2), and are improving. Prior Prostate Score unknown. Treatment plan continue with current medications. Assisted living [facility] Medical History Kidney stones Eye dryness HTN (hypertension) Parkinsons disease Poor urinary stream Benign prostatic hyperplasia with lower urinary tract symptoms Surgical History History of cataract surgery H/O hernia repair History of appendectomy History of surgery Family History Family/Other Cancer Diabetes mellitus Stroke Father No problems noted. Mother No problems noted. Social History Household Members: Spouse Alcohol intake: current Alcohol intake frequency: holidays/special occasions only Patient Tobacco Use Status: Never used Tobacco Review of Systems Const Denies chills and Denies fever(s) Card Reports no additional complaints and Denies syncope Resp Denies cough GI Denies abdominal pain and Denies heartburn Reports as per HPI and Denies change in libido Neuro Denies syncope Psych Denies change in libido Endo Denies change in libido Physical Exam Const General: cooperative, healthy appearing, comfortable and no acute distress Orientation/consciousness: patient oriented x3 HEENT Face and sinus: Yes normal facial exam Mouth: moist mucous membranes Neck Neck: Yes normal visual inspection, Yes full ROM and Yes trachea midline Chest Chest palpation & inspection: normal inspection of the chest Resp Effort & Inspection: normal respiratory effort, able to speak in complete sentences and no respiratory distress GI Inspection: Yes normal to inspection Back/Spine/Pelvis Cervical Spine: normal cervical lordosis Thoracic/Lumbar Spine: thoracic and lumbar spine normal to inspection Skin General skin exam: no rashes or lesions noted Neuro General: patient oriented x3, gait normal, tone normal and moves all extremities Extrem General: Yes normal to inspection and Yes capillary refill normal Results AMB Urinalysis, Automated UA Leukoctes 0 Giana/uL Last Edit by RADHA Garza on 05/29/24 12:00 UA Nitrite Negative Last Edit by RADHA Garza on 05/29/24 12:00 UA Urobilinogen 0.2 mg/dL Last Edit by RADHA Garza on 05/29/24 12:00 UA Protein 15 mg/dL Last Edit by RADHA Garza on 05/29/24 12:00 UA pH 5.5 Last Edit by RADHA Garza on 05/29/24 12:00 UA Blood 0 Terence/uL Last Edit by RADHA Garza on 05/29/24 12:00 UA Specific [place] 1.030 Last Edit by RADHA Garza on 05/29/24 12:00 UA Ketone Negative Last Edit by RADHA Garza on 05/29/24 12:00 UA Bilirubin 0 mg/dL Last Edit by RADHA Garza on 05/29/24 12:00 UA Glucose 0 mg/dL Last Edit by RADHA Garza on 05/29/24 12:00 Results Reviewed Results Reviewed: Laboratory Last Values Urine pH (Auto) 5.5 05/29/24 11:58 Specific [place] (Auto) 1.030 05/29/24 11:58 Urine Protein (Auto) 15 mg/dL 05/29/24 11:58 Glucose (UA)(Auto) 0 mg/dL 05/29/24 11:58 Urine Ketones (Auto) Negative 05/29/24 11:58 Urine Blood (Auto) 0 Terence/uL 05/29/24 11:58 Urine Nitrite (Auto) Negative 05/29/24 11:58 Urine Bilirubin (Auto) 0 mg/dL 05/29/24 11:58 Urine Urobilinogen (Auto) 0.2 mg/dL 05/29/24 11:58 Leukocyte Esterase (Auto) 0 Giana/uL 05/29/24 11:58 Assessment & Plan Assessment & Plan (1) BPH loc w urin obs/LUTS: Code(s): N40.1 - Benign prostatic hyperplasia with lower urinary tract symptoms Category: Medical (2) Nocturia more than twice per night: Code(s): R35.1 - Nocturia Category: Medical Plan Twelve month follow-up Orders: Orders AMB Urinalysis Automated 05/29/24 Z13.9 - Encounter for screening, unspecified Patient Instructions: Imaging studies, laboratory and physical exam results were discussed and reviewed in detail. No major barriers to patient understanding were identified. An opportunity to ask questions regarding the treatment plan was provided. All questions were answered. The patient expressed understanding and agreement with the above treatment plan. The patient is aware they should contact our office by phone for worsening of their current condition or the appearance of new urologic symptoms. Compliance is encouraged with any medications and followup testing that is ordered. It is a privilege to participate in the urologic care of your patient. If you have any questions or concerns regarding treatment for the above conditions, or other urologic issues, please do not hesitate to contact me. The office telephone contact is [phone]. This note is constructed using voice recognition software. While every effort has been made to ensure accuracy managed services sales consultant errors may have been included. Yours sincerely, Dr Guille oYst MD, [facility] - Urology Providers of Expert, Compassionate Care for the Genitourinary System Coding Level of Care Code Est Pt Level 4 (02720) Diagnoses BPH loc w urin obs/LUTS N40.1 Nocturia more than twice per night R35.1
--- OUTSIDE RECORDS SUMMARY | 2024-06-04 01:58 | XMS_ITS | Data Portability ---
Author Organization [place] [facility] Address [address] [place] [id number] Care Team Providers Care [employer] Line Worker Name Role Phone KENYATTA HERNANDEZ Primary Care Provider Assessment Encounter Date Assessment Date Assessment LastModified by Organization Details LastModified Time 05/03/2021 05/03/2021 This is a pleasa nt 85 year old male with past medical history that includes but is not limited to HTN, kidney stones (12-13 years ago), Parkinson's who is new to and new to this provider calls today for urinary discomfort and frequency for the past five days. Afebrile, non-toxic although chronically ill appearing 85 year old male being seen today at [facility], present as well. A&OX4, clear speech, flat affect, in NAD. LS CTAB. HR regular. Abdomen soft, non-tender, non-distended with BS present x 4. No CVAT or suprapubic tenderness. Gential exam revealed no testicular/scrotal tenderness, negative cremasteric reflex. Needs assistance x1 when going from sitting to standing. Ambulates with wheeled walker independently and steay. Skin dry and intact. Non-focal neuro exam. VS - 96.8; 71; 124/90; 20; 97% on RA My differential diagnoses include but are not limited to acute urinary tract infection, urethritis, pyelonephritis, overactive bladder, prostatitis, testicular torsion, epidiymitis, malignancy Workup/Results: Urine dip - leuks ++, protein +, blood and nitrates neg Urine culture pending - Fax results to urologist Dr. Yost Plan/Discussion: The above differentials considered, exam and HPI most consistent with urinary tract infection. Well appearing on exam, hemodynamically stable without fevers, tachycardia, hypotension. Benign abdominal exam. No CVAT or suprapubic tenderness, no blood in urine, lower suspicion for pyelo or nephrolithiasis. Gential exam revealed no testicular/scrotal tenderness, negative cremasteric reflex. Patient is vague in explaining where pain is with urination, although given urinary frequency, plan to treat for cystitis with keflex twice daily. Urine dip negative for blood and nitrates. Will send urine culture for confirmation. Patient is currently on hospice. Will follow up with urology. Push fluids. If fevers develop, blood in urine, abdominal pain seek medical attention. Red flags and ED precautions reviewed, all questions answered, patient in agreement with plan. Proper Personal Protective Equipment (PPE), including gloves, eye protection and masks were donned and doffed appropriately and all equipment cleaned using approved technique with germicidal disposable wipes prior to and after care of this patient according to [facility]'s infection prevention protocols. Not available 05/03/2021 18:46:06 Plan of Treatment Reminders Order Date Submit Date Provider Last Modified By Organization Details Last Modified Time Details Appointments None recorded. Lab culture, urine 2020 [place], [address] [place] [address], [address], 12:22:13 urinalysis, dipstick 2020 021 [email or web address] [facility], [address] [place] [address], [phone], 17:33:17 Referral None recorded. Procedures None recorded. Surgeries None recorded. Imaging None recorded. Medication Orders cephalexin 500 mg capsule 2020 [email or web address] [id number], [address] [facility], [place], [address], 19:00:00 Patient TargetsNo targets recorded. Patient Instructions Encounter Date Encounter Id Patient Instructions Last Modified By Organization Details Last Modified Time 05/03/2021 [id number] CARTER WAS SEEN TODAY FOR URINARY BURNING - HIS VITALS WERE NORMAL AND HE DID NOT HAVE A FEVER - HIS URINE SHOWED LEUKOCYTES, ALTHOUGH NO BLOOD OR NITRATES - WE WILL START ON ANTIBIOTICS - FOLLOW UP WITH UROLOGY - DRINK PLENTY OF FLUIDS IF YOU DEVELOP BLOOD IN URINE, FEVERS, ABDOMINAL PAIN, FLANK PAIN SEEK MEDICAL ATTENTION IMMEDIATELY URINARY TRACT INFECTION INSTRUCTIONS BASIC INFORMATION Urinary tract infections(UTI) can involve any portion of the urinary tract. The most common presentation is a bladder infection/cystitis, which usually presents with urinary frequency, burning with urination, urgency, foul smelling cloudy urine and occasionally blood. Kidney infections are less frequent, but more serious, and present with fever, flank pain, malaise and sometimes shaking chills. UTI? s are common in women because of the female anatomy, and much less common in males. INSTRUCTIONS Drink plenty of fluid, water is best. Drinking fluids will help to flush the bacteria from your body. Urinate every 2-3 hours Wear cotton underwear and avoid Nylon, Spandex and Lycra which tend to trap moisture and thong underwear which may facilitate UTI? s. Avoid tub baths Avoid using Super Tampons Use only mild unscented soap to wash your genitals, such as Dove or Ivory, avoid heavily scented body washes. If you are sexually active urinate as soon as possible after intercourse. Yogurt and probiotics may help to establish a more healthy genital environment, and aid in prevention. MEDICATIONS 1.Antibiotics: Usually prescribed if you have a UTI, there are many different effective antibiotics available. It is important that you complete the course of antibiotics you are given. You should feel some improvement within 24-48 hours, if you do not it may be that the bacteria causing your infection is resistant to the prescribed medication. If a urine culture is obtained it will usually take at least 3-4 days to get the final result. 2. Anesthetic/Pain relievers: Phenazopyridine (Pyridium, Uribelle, AZO) is an anesthetic excreted in the urine. This medicine will turn your urine BRIGHT ORANGE! This is normal, and may stain your underwear can contacts. Take this medication as directed with food. 3. Tylenol and Ibuprofen can be helpful for the pain, fever and body aches that can be associated with a kidney infection. Please follow recommended dosing instructions on the bottle. FOLLOW UP 1. If your symptoms are not improving in 24-48 hours 2. If your symptoms are getting more severe 3. Any unusual vaginal discharge 4. Symptoms recur after you complete medication SEEK CARE IMMEDIATELY IF 1.You have shaking chills or temperature over 101.5 2. Severe flank pain 3. Persistent vomiting, unable to keep fluids or medicine down. 4. Worse despite medication. If you develop any new or worsening symptoms and need after hours care, please go to nearest ER and/or call 911. If you have additional concerns or develop a change in your condition between 8am-10pm, please call [facility] at [phone] to help navigate your care. [facility]. We cannot always find the exact cause of your symptoms during your initial visit. Please follow up with your primary care provider or specialist {{within 12-24 hours within 24-48 hours* within 2-3 days as needed}} to be rechecked or seek medical attention if your symptoms do not go away or get worse. If you develop any new or worsening symptoms and need after hours care, please go to nearest ER and/or call 911. If you have additional concerns or develop a change in your condition between 8am-10pm, please call [facility] at [phone] to help navigate your care. [email or web address] Not available 05/03/2021 17:31:21 Reason for Referral None Reported. Results Created Date Observation Date Name Description Value Unit Range Abnormal Flag Note LastModifiedBy Organization Detail LastModifiedTime 05/03/20 21 05/04/2021 URINE CULTU RE specimen description URINE Not Available [facility] [address] [place], [id number], 05/06/2021 12:22:13 05/03/20 21 05/04/2021 URINE CULTU RE special requests NONE Not Available [facility] [address] [place], [address], 05/06/2021 12:22:13 05/03/20 21 05/06/2021 URINE CULTU RE culture >100,0 00 COL/ML ENTERO COCCUS FAECAL IS abnormal Not Available [facility] [address] [place], [address], 05/06/2021 12:22:13 05/03/20 21 05/06/2021 URINE CULTU RE report status FINAL 2020 Not Available [facility] [address] [place], [id number], 05/06/2021 12:22:13 05/03/20 21 05/06/2021 URINE CULTU RE organism ORGANI SM >100,0 00 COL/ML ENTERO COCCUS FAECAL IS Not Available [facility] [address] [place], [id number], 05/06/2021 12:22:13 05/03/20 21 05/06/2021 URINE CULTU RE method METHOD MIN. INHIB. CONC. (MCG/M L) Not Available [facility] [address] [place], [address], 05/06/2021 12:22:13 05/03/20 21 05/06/2021 URINE CULTU RE ampicillin AMPICI LLIN SUSCEP TIBLE susceptib le Not Available [facility] [address] [place], [id number], 05/06/2021 12:22:13 05/03/20 21 05/06/2021 URINE CULTU RE ciprofloxaci n CIPROF LOXACI N SUSCEP TIBLE susceptib le Not Available [facility] [address] [place], [id number], 05/06/2021 12:22:13 05/03/20 21 05/06/2021 URINE CULTU RE nitrofuranto in NITROF URANTO IN SUSCEP TIBLE susceptib le Not Available [facility] [address] [place], [address], 05/06/2021 12:22:13 05/03/20 21 05/06/2021 URINE CULTU RE levofloxacin LEVOFL OXACIN SUSCEP TIBLE susceptib le Not Available [facility] [address] [place], [address], 05/06/2021 12:22:13 05/03/20 21 05/06/2021 URINE CULTU RE vancomycin VANCOM YCIN SUSCEP TIBLE susceptib le Not Available [facility] [address] [place], [address], 05/06/2021 12:22:13 05/03/20 21 05/06/2021 URINE CULTU RE tetracycline TETRAC YCLINE RESIST ANT resistant Not Available [facility] [address] [place], [address], 05/06/2021 12:22:13 05/03/20 21 05/06/2021 URINE CULTU RE gentamicin synergy GENTAM ICIN SYNERG Y ACTIVE IN SYNERG Y susceptib le Not Available [facility] [address] [place], [address], 05/06/2021 12:22:13 05/03/20 21 05/06/2021 URINE CULTU RE streptomycin synergy STREPT OMYCIN SYNERG Y ACTIVE IN SYNERG Y susceptib le Not Available [facility] [address] [place], [address], 05/06/2021 12:22:13 05/03/20 21 05/03/2021 urina lysis , dipst ick Appearance YELLOW Not Available [facility] [address] [place], [address], 05/03/2021 17:07:40 05/03/20 21 05/03/2021 urina lysis , dipst ick Color CLOUDY Not Available [facility] [address] [place] [address], [address], 05/03/2021 17:07:40 05/03/20 21 05/03/2021 urina lysis , dipst ick Glucose (ref: neg) Neg Not Available [facility] [address] [place], [address], 05/03/2021 17:07:40 05/03/20 21 05/03/2021 urina lysis , dipst ick Bilirubin (ref: neg) Neg Not Available [facility] [address] [place], [address], 05/03/2021 17:07:40 05/03/20 21 05/03/2021 urina lysis , dipst ick Ketones (ref: neg) Neg Not Available [facility] [place] [address] [place], [address], 05/03/2021 17:07:40 05/03/20 21 05/03/2021 urina lysis , dipst ick Specific [place] (ref: 1.003 - 1.035) 1.020 Not Available [place] [address] [place], [address], 05/03/2021 17:07:40 05/03/20 21 05/03/2021 urina lysis , dipst ick Blood (ref: neg) Neg Not Available [address] [place], [address], 05/03/2021 17:07:40 05/03/20 21 05/03/2021 urina lysis , dipst ick pH (ref: 5-7) 6.5 Not Available [place] [address] [place], [address], 05/03/2021 17:07:40 05/03/20 21 05/03/2021 urina lysis , dipst ick Protein (ref: neg) ?? Not Available [address] [place], [address], 05/03/2021 17:07:40 05/03/20 21 05/03/2021 urina lysis , dipst ick Urobilinogen (ref: 0.2) 0.2 Not Available [address] [place], [address], 05/03/2021 17:07:40 05/03/20 21 05/03/2021 urina lysis , dipst ick Nitrites (ref: neg) negati ve Not Available [address] [place], [address], 05/03/2021 17:07:40 05/03/20 21 05/03/2021 urina lysis , dipst ick Leukocytes (ref: neg) ++ Not Available [facility] [address] [place], [address], 05/03/2021 17:07:40 Result Notes None recorded. Procedures Surgical History Date Name Laterality Status Provider Name and Address Organization Details Recorded Time Appendectomy completed DYLAN NOVOA NP [address] [place], [address], [place] [facility] 05/03/2021 16:57:14 Hernia repair w/mesh completed DYLAN NOVOA NP [address] [place], [address], [place] [facility] 05/03/2021 17:01:23 Imaging Results None recorded. Procedure Notes None recorded. Medical Equipment None Reported. Allergies Allergen ID Allergen Name Allergen Category Reaction Reaction Severity Criticality Documentation Date Start Date Code Code System Note Provider Name and Address Organization Details Recorded Time 149280 Substance with sulfonami de structure and antibacte rial mechanism of action (substanc e) medicatio n Not available Not available Not available 05/03/2021 95412 8003 SNOMED DYLAN NOVOA NP [address] [place], [address], [place] [facility] 17:26:41 Medications Name Sig Start Date Stop Date Status Note LastModified by Organization Details LastModified Time amantadine HCl 100 mg tablet 05/03 completed Not Available Not Available Not Available naftifine 1 % topical gel active Not Available Not Available Not Available amoxicillin 500 mg tablet Take 1 tablet every 12 hours by oral route as directed for 7 days. active Not Available Not Available No t Available cephalexin 500 mg capsule Take 1 capsule twice a day by oral route with meals for 7 days. active Not Available Not Available No t Available omeprazole 20 mg capsule,del ayed release active Not Available Not Available Not Available lisinopril 5 mg tablet active Not Available Not Available Not Available carbidopa 25 mg-levodopa 100 mg tablet active Not Available Not Available Not Available finasteride 5 mg tablet active Not Available Not Available Not Available Vitamin C active Not Available Not Saray ilable Not Available amantadine HCl active Not Available Not Available Not Available Sinemet active Not Available Not Avail able Not Available Vitamin D3 active Not Available Not Av ailable Not Available Miralax active Not Available Not Avail able Not Available Vitals Date Recorded Respiratory rate Heart rate Oxygen saturation Oxygen saturation in Arterial blood by Pulse oximetry Body temperature Systolic blood pressure Diastolic blood pressure Provider Name and Address Organization Details Last Updated DateTime 1 20 /min 71 /min 97 % 97 % 96.8 [degF] 124 mm[Hg] 90 mm[Hg] Not Available [facility] 16:58:17 Social History Question Answer Notes LastModified by Organizat ion Details LastModified Time Tobacco Smoking Status Never Smoker DYLAN NOVOA NP [address] [place], [place], [address], [place] [facility] 05/03/2021 17:01:34 Do You Have An Advance Directive? Yes [email or web address] Information not available 05/03/2021 What Is Your Level Of Alcohol Consumption? Occasional [email or web address] Information not available 05/03/2021 What Is Your Code Status? DNR [email or web address] Information not available 05/03/2021 Within The Past 12 Months, Has It Happened That The Food You Bought Just Didn't Last And You Didn't Have Money To Get More. No [email or web address] Information not available 05/03/2021 Within The Past 12 Months, Have You Worried That Your Food Would Run Out Before You Got Money To Buy More. No [email or web address] Information not available 05/03/2021 Fall Risk: Do You Feel Unsteady When Standing Or Walking? No [email or web address] Information not available 05/03/2021 Excessive Alcohol Or Drug Use No [email or web address] Information not available 05/03/2021 Does This Patient Have A PCP? Yes [email or web address] Information not available 05/03/2021 Do You Use Any Illicit Or Recreational Drugs? No [email or web address] Information not available 05/03/2021 Do You Or Have You Ever Used Any Other Forms Of Tobacco Or Nicotine? No [email or web address] Information not available 05/03/2021 Sex: Unknown Functional Status None recorded. Mental Status None recorded. Family History Nothing Reported. Medical History Condition Response Hypertension Y Past Encounters Encounter ID Performer Location Encounter Start Date Encounter Closed Date Diagnosis/Indication Diagnosis SNOMED-CT Code Diagnosis ICD10 Code [id number] DYLAN NOVOA NP [facility] [address] [place] [address] 05/03/2021 16:27:44 05/09/2021 13:25:56 Increased frequency of urination 577121032 R35.0 Acute urin [place] tract infection 822560266 N39.0 Health Concerns Section Related Observation LastModified by Organization Detai ls LastModified Time None Recorded Concern Status LastModified by Organization Details LastModified Time None Recorded Advance Directives Directive Y: Payers Encounter Date Sequence Insurance Name Policy Number Policy Castro Covered Member ID Castro Member ID Guarantor Name 05/03/2021 2 [employer] (MEDICARE SUPPLEMENT) Carter Lan [id number] Carter Lan 05/03/2021 1 [employer] (MEDICARE REPLACEMENT PPO) [id number] Carter Lan [id number] Carter Lan Notes Date Note Type Note Provider Name and Address Organization Details Recorded Time 05/03/2021 text/html 85 year old male with past medical history that includes but is not limited to HTN, kidney stones (12-13 years ago), Parkinson's who calls today for urinary discomfort and frequency for the past five days. Patient was seen at urology office last week for blood in urine although that resolved. No findings on urine sample at that time, was told to follow up in 6months. Denies blood in urine or blood clots currently. Reports discomfort with urination, not pain. Not sure exactly where discomfort comes from and reported discomfort to penis and then groin. Urinary frequency during day and night. Normally voids 1-2 times a night. Reports now 4-5 times per night. Patient is on finasteride although per patient this was 'preventative' was never told he had an issue with this prostate. Denies flank pain or abdominal pain. Denies fevers fatigue, diminished activity. DYLAN NOVOA NP [address], [place], [address], [place] [facility] 05/03/2021 19:00:47
== END 2024-05-29 12:21 | disposition home or self-care (01) ==
PROVIDERS: PCP Internal Medicine; Visit Provider Urology
DX: N40.1 Benign prostatic hyperplasia with lower urinary tract symptoms (principal); R35.1 Nocturia
CPT/HCPCS: 99214

== ENCOUNTER → 2024-05-29 11:25 | Outpatient (BNVA) | payer MEDICARE, SELFPAY | PROVIDERS: PCP Internal Medicine; Visit Provider Urology | DX: N40.1 Benign prostatic hyperplasia with lower urinary tract symptoms (principal); R35.1 Nocturia; G20.A1 Parkinson's disease without dyskinesia, without mention of fluctuations; Z79.899 Other long term (current) drug therapy | CPT/HCPCS: 81003; 99212 ==